=== PATIENT | female | born 1950 | race Caucasian/White ===

== ENCOUNTER 2017-09-04 17:19 | Emergency (ER) | payer OTHER, BC, MEDICARE ==
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
[2017-09-04] MEDS ORDERED: ACETAMINOPHEN 325 MG TABLET PO ONE (19:02)
[2017-09-04] MEDS ORDERED: IBUPROFEN 600 MG TABLET PO ONE (19:02)
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
[2017-09-04 20:41] VITALS: BP 137/68
== END 2017-09-04 20:40 | disposition home or self-care (01) ==
LOC: ER 17:19
DX: S29.012A Strain of muscle and tendon of back wall of thorax, initial encounter (principal); V49.40XA Driver injured in collision with unspecified motor vehicles in traffic accident, initial encounter; M16.12 Unilateral primary osteoarthritis, left hip; M47.9 Spondylosis, unspecified; Z87.891 Personal history of nicotine dependence
CPT/HCPCS: 72070; 72110; 99283

== ENCOUNTER → 2020-10-24 | Outpatient (CLI) | payer BC, MEDICARE, OTHER ==
--- NOTE | 2020-10-24 12:28 | WOMENS IMAGING REPORT ---
EXAM DESCRIPTION: BONE DENSITY HIP/SPINE IMAGES COMPLETED DATE/TIME: 10/24/2020 8:06 am REASON FOR STUDY: M81.0 M81.0 AGE-RELATED OSTEOPOROSIS W/O CURRENT PATHOLOGICAL FRAC COMPARISON: None. TECHNIQUE: Dual-Energy X-ray Absorptiometry (DEXA) of the Forearm. LIMITATIONS: None. FINDINGS: FOREARM: The bone mineral density (BMD) measured in the left forearm correlates with a T-score of -4.4 which i s osteoporosis as defined by the World Health Organization. IMPRESSION: Forearm: Osteoporosis COMMENT: The World Health Organization defines low BMD as follows: T-score: Normal: Greater than -1.0 Osteopenia: Between -1.0 and -2.5 Osteoporosis: Less than -2.5 without fractures Established osteoporosis: Less than -2.5 with fractures In general, you may wish to consider: Diagnosis Treatment Follow-up DEXA Normal BMD Prevention 2-3 years Osteopenia Prevention/Therapy 1-2 years Osteoporosis Therapy Yearly TECHNICAL DOCUMENTATION: JOB ID: [id number] [employer]- All Rights Reserved Reading location - IP/workstation name: [email or web address]
== END ==
LOC: WI 07:52
PROVIDERS: ATTEND Family Medicine
DX: M81.0 Age-related osteoporosis without current pathological fracture (principal)
CPT/HCPCS: 77080